=== PATIENT | female | born 1990 | race Asian ===

== ENCOUNTER 2018-05-07 12:34 | Emergency (ER) | payer OTHER ==
[~2018-05-07] VITALS: Ht 167.6 cm; Wt 64.9 kg
[2018-05-07] MEDS ORDERED: Methocarbamol 500mg tab ORAL ONE (13:00)
[2018-05-07] MEDS ORDERED: Acetaminophen 500mg (ES) tab ORAL ONE (13:00)
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
[2018-05-07 13:41] VITALS: BP 131/88
[2018-05-07 13:50] LABS: APPEARANCE,URINE CLEAR; BILIRUBIN, URINE NEGATIVE (NEGATIVE); COLOR,URINE PALE YELLOW; GLUCOSE, URINE (UA) NEGATIVE (NEGATIVE); KETONES,URINE NEGATIVE (NEGATIVE); LEUKOCYTE ESTERASE ,URINE NEGATIVE (NEGATIVE); NITRITE,URINE NEGATIVE (NEGATIVE); PH,URINE 6 (4.5-8.0); PROTEIN,URINE NEGATIVE (NEGATIVE); UROBILINOGEN,URINE NORMAL MG/DL (0.0-1.0)
[2018-05-07] MEDS ORDERED: LIDOCAINE700 M1 TP (14:39)
[2018-05-07] MEDS ORDERED: TYLENOL EXTRA500 MG ORAL (14:40)
[2018-05-07] MEDS ORDERED: ROBAXIN500 MG PO (14:40)
[2018-05-07 15:04] VITALS: BP 121/78
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
== END 2018-05-07 15:04 | disposition home or self-care (01) ==
LOC: EMR 14:34
DX: M54.9 Dorsalgia, unspecified (principal); M54.2 Cervicalgia; Z88.0 Allergy status to penicillin; Z88.8 Allergy status to other drugs, medicaments and biological substances; V43.52XA Car driver injured in collision with other type car in traffic accident, initial encounter; Y92.410 Unspecified street and highway as the place of occurrence of the external cause
CPT/HCPCS: 72020; 81003; 81025; 99283